=== PATIENT | male | born 1935 | race Caucasian/White ===

== ENCOUNTER 2018-08-06 10:33 | Emergency (ER) | payer OTHER, MEDICARE ==
[~2018-08-06] VITALS: Ht 175.3 cm; Wt 77.1 kg
[2018-08-06 11:47] LABS: ABSOLUTE BASOPHIL COUNT 0 /CUMM (0.0-0.2); ABSOLUTE EOSINOPHIL COUNT 0.3 /CUMM (0.0-0.7); ABSOLUTE GRANULOCYTE CT 4.6 /CUMM (1.4-6.5); ABSOLUTE LYMPH COUNT 1.1 /CUMM (1.2-3.4); ABSOLUTE MONOCYTE COUNT 0.5 /CUMM (0.10-0.60); BASOPHIL % 0.6 % (0.0-2.0); EOSINOPHIL % 5.2 % (0-5); GRANULOCYTE % 69.7 % (42.2-75.2); MEAN CORPUSCULAR HGB 31.6 PG (27.0-31.0); MEAN CORPUSCULAR HGB CONC 33.6 G/DL (33.0-37.0); MEAN CORPUSCULAR VOLUME 94.1 FL (80.0-94.0); MEAN PLATELET VOLUME 7.8 FL (7.4-10.4); PLATELET COUNT 282 /CUMM (130-400); RBC DISTRIBUTION WIDTH 13.4 % (11.5-14.5); RED BLOOD CELL CT 4.04 /CUMM (4.70-6.10); WHITE BLOOD CELL COUNT 6.6 /CUMM (4.8-10.8)
--- NOTE | 2018-08-06 11:50 | ED AMS/SEIZURE/WEAK/DIZZY ---
History of Present Illness General Chief Complaint: General Adult Stated Complaint: MULTI COMPLAINTS Source: patient, Exam Limitations: no limitations Vital Signs & Intake/Output Vital Signs & Intake/Output Vital Signs Date Time Temp Pulse Resp B/P B/P Pulse O2 O2 Flow FiO2 Mean Ox Delivery Rate 08/06 1333 98.3 72 18 141/73 96 Room Air 08/06 1249 97.4 80 21 128/70 94 Room Air 08/06 1155 98 Room Air 08/06 1046 97.0 84 20 123/76 94 Room Air Allergies Coded Allergies: Penicillins (RASH 08/06/18) morphine (HALLUCINATES 08/06/18) Reconcile Medications Atorvastatin Calcium 20 MG TABLET 1 TAB PO DAILY CHOLESTEROL (Reported) Diltiazem HCl 30 MG TABLET 1 TAB PO BID HEART (Reported) Omeprazole 20 MG CAPSULE.DR 1 CAP PO DAILY GI (Reported) Warfarin Sodium 5 MG TABLET 1 TAB PO 1700 BLOOD THINNER (Reported) Triage Note: PT TO ED WITH C/O LETHARGY, WEAKNESS, POOR PO INTAKE, UPSET STOMACH, SOB, FEVERS, MUSCLE ACHES. PT HAD ? INSECT BITE TO [facility] 1 WEEK AGO. H/O AFIB, ON COUMADIN. RA SATS 94%, NO OBVIOUS RESP DISTRESS NOTED. PT HERE FROM [place]. Triage Nurses Notes Reviewed? yes HPI: Patient presents for evaluation of a gradual onset of fever and fatigue over the past 10 days. Patient states that while he was playing golf he was bitten by something on the left forearm and on the right arm but can't say what it was. Over the past 10 days he's had a decreased appetite dyspnea and easy fatigability. He denies cold symptoms vomiting diarrhea or dysuria. he likewise denies rashes. Symptoms are described as moderate to severe in intensity and worsen with exertion. Symptoms have been more or less constant but do tend to fluctuate in intensity. Nothing seems to make him feel better overall. Past History Travel History Traveled to [place] past 21 day No Medical History Any Pertinent Medical History? see below for history Cardiovascular: AFIB, hyperlipidemia Cancer(s): prostate cancer Surgical History Surgical History: non-contributory Psychosocial History What is your primary language Nepali Tobacco Use: Quit >30 days ago ETOH Use: denies use Illicit Drug Use: denies illicit drug use Family History Hx Contributory? No Review of Systems Review of Systems Constitutional: Reports: see HPI. EENTM: Reports: no symptoms. Respiratory: Reports: see HPI. Cardiovascular: Reports: no symptoms. GI: Reports: no symptoms. Genitourinary: Reports: no symptoms. Musculoskeletal: Reports: no symptoms. Skin: Reports: no symptoms. Neurological/Psychological: Reports: no symptoms. Hematologic/Endocrine: Reports: no symptoms. Immunologic/Allergic: Reports: no symptoms. All Other Systems: Reviewed and Negative Physical Exam Physical Exam General Appearance: SEE BELOW Comments: Gen.: Well-nourished, well-developed, no acute respiratory distress. Speaking in full sentences. Head: Normocephalic, atraumatic. Eyes: Normal inspection bilaterally Ears: Normal inspection bilaterally Nose: Normal inspection Throat/mouth : Moist mucosa Neck: Supple, full range of motion, no goiter Heart: Slightly irregular rate and rhythm, no murmurs rubs or gallops Lungs: Clear to auscultation bilaterally with normal air entry Chest: Nontender Back: Normal range of motion, mild to moderate kyphosis Abdomen: Soft, nontender, nondistended, normal bowel sounds Extremities: Normal range of motion grossly, equal radial pulses, no cyanosis clubbing or edema, no pretibial edema, no calf tenderness Neurologic: Cranial nerves grossly intact, speech is clear Skin: warm and dry Psychiatric: Calm, cooperative, no apparent delusions or hallucinations Core Measures ACS in differential dx? No CVA/TIA Diagnosis No Sepsis Present: No Sepsis Focused Exam Completed? No CURB-65 CURB-65 Response Value Age >/= 65 yes 1 Total 1 Progress Differential Diagnosis: anemia, dehydration Plan of Care: Orders Procedure Date/time Status Add-on Test (ER Only) 08/06 1150 Active C-REACTIVE PROTEIN 08/06 1137 Complete B-TYPE NATRIURETIC PEP (BNP) 08/06 1137 Complete URINALYSIS 08/06 1105 Active TROPONIN LEVEL 08/06 1105 Complete COMPREHENSIVE METABOLIC PANEL 08/06 1105 Complete CBC WITHOUT DIFFERENTIAL 08/06 1105 Complete EKG 08/06 1105 Active Laboratory Tests 08/06/18 1137: Anion Gap 7, Estimated GFR > 60, BUN/Creatinine Ratio 21.4, Glucose 117 H, Calcium 8.7, Total Bilirubin 0.6, AST 29, ALT 21, Alkaline Phosphatase 77, Troponin I < 0.01, C-Reactive Prot, Quant 3.4 H, Mgl-U-Ueldmbkzort Pept 299 H, Total Protein 6.1 L, Albumin 3.3 L, Globulin 2.8, Albumin/Globulin Ratio 1.2, CBC w Diff NO MAN DIFF REQ, RBC 4.04 L, MCV 94.1 H, MCH 31.6 H, MCHC 33.6, RDW 13.4, MPV 7.8, Gran % 69.7, Lymphocytes % 16.1 L, Monocytes % 8.4, Eosinophils % 5.2 H, Basophils % 0.6, Absolute Granulocytes 4.6, Absolute Lymphocytes 1.1 L, Absolute Monocytes 0.5, Absolute Eosinophils 0.3, Absolute Basophils 0 08/06/18 1105: Lyme Disease Screen Pending Diagnostic Imaging: Discussed w/RAD: Radiology Read. CXR Impression: PATIENT: MAY DELGADO JR PRESENT AGE: 83 PATIENT ACCOUNT NO: [id number] : 36 LOCATION: [facility] ORDERING PHYSICIAN: Balta Flores MD SERVICE DATE: 08/06/18 EXAM TYPE: RAD - XRY-CHEST XRAY, TWO VIEWS EXAMINATION: XR CHEST CLINICAL INFORMATION: Dyspnea. Fatigue. COMPARISON: None TECHNIQUE: 2 views of the chest were obtained. FINDINGS: The lungs are well expanded. There is left greater than right basilar patchy opacification. No pulmonary edema, large pleural effusion, or pneumothorax. No mediastinal widening. No acute osseous abnormalities. IMPRESSION: Mild bilateral patchy opacification at the lung bases (left greater than right). Please correlate for any clinical symptoms of aspiration or pneumonia. DICTATED BY: Rigoberto Stark MD DATE/TIME DICTATED:08/06/181220 DOG TRAINER:CHICA DATE/TIME TRANSCRIBED:08/06/181220 CONFIDENTIAL, DO NOT COPY WITHOUT APPROPRIATE AUTHORIZATION. <Electronically signed in Other Vendor System> SIGNED BY: Rigoberto Stark MD 08/06/181224 Initial ED EKG: NSR, iNCOMPLETE RIGHT BUNDLE, pacS Comments: 08/06/2018 1:54:40 PM I have updated May on test results. I found him walking about the emergency department room. He appears comfortable and offers no specific complaint at this time. I feel he is stable for outpatient management of his possible pneumonia. His curb-65 score is only 1. Departure Departure Disposition: HOME OR SELF CARE Condition: Stable Clinical Impression Primary Impression: Pneumonia Qualifiers: Pneumonia type: due to unspecified organism Laterality: bilateral Lung location: lower lobe of lung Qualified Code: J18.1 - Lobar pneumonia, unspecified organism Referrals: Anne Marie GUERRERO,Param Holliday (PCP/Family) Additional Instructions: Azithromycin as prescribed for your possible pneumonia. Maintain a good fluid intake. Follow-up with your primary care physician within 48 hours. Return if any concerns or sudden worsening. Please note that there might be incidental findings in your evaluation that are unrelated to the current emergency department visit. Please notify your primary care doctor about this emergency department visit in order to obtain and review all of the testing performed so that these incidental findings can be monitored as needed. If you had an x-ray performed, please understand that some fractures or other findings may not be seen on the initial set of x-rays. If your symptoms persist you might need a repeat set of x-rays to check for such a fracture. If you had a laceration evaluated, please understand that foreign bodies such as glass or wood may not be visible to the naked eye or on plain x-rays. If the wound becomes red, swollen, increasingly more painful or if there is any drainage from the wound, please have it reevaluated by a physician for the possibility of a retained foreign body. If you're unable to follow up as outlined in the discharge instructions please return to the emergency department. Thank you for choosing the [facility] Emergency Department for your care. It was a pleasure to serve you today. Balta Flores M.D. [facility] Departure Forms: Customer Survey General Discharge Information Prescriptions: Current Visit Scripts Azithromycin (Zithromax) 1 DP PO AD #6 TAB 2 the first day followed by 1 for days 2-5
[2018-08-06] MEDS ORDERED: ATORVASTATIN CA20 M1 PO (12:19)
[2018-08-06] MEDS ORDERED: DILTIAZEM HCL30 M1 PO (12:19)
[2018-08-06] MEDS ORDERED: WARFARIN SODIUM5 M1 PO (12:19)
[2018-08-06] MEDS ORDERED: OMEPRAZOLE20 M2 PO (12:20)
--- NOTE | 2018-08-06 12:25 | RADIOLOGY REPORT ---
EXAMINATION: XR CHEST CLINICAL INFORMATION: Dyspnea. Fatigue. COMPARISON: None TECHNIQUE: 2 views of the chest were obtained. FINDINGS: The lungs are well expanded. There is left greater than right basilar patchy opacification. No pulmonary edema, large pleural effusion, or pneumothorax. No mediastinal widening. No acute osseous abnormalities. IMPRESSION: Mild bilateral patchy opacification at the lung bases (left greater than right). Please correlate for any clinical symptoms of aspiration or pneumonia.
[2018-08-06] MEDS ORDERED: ZITHROMAX250 M2 PO (13:57)
== END 2018-08-06 14:10 ==
LOC: ERH 10:33
PROVIDERS: Physician Assistant Medical
DX: J18.9 Pneumonia, unspecified organism (principal); Z87.891 Personal history of nicotine dependence; R50.9 Fever, unspecified; R53.83 Other fatigue; I48.91 Unspecified atrial fibrillation; Z79.01 Long term (current) use of anticoagulants
CPT/HCPCS: 87476; 71046; 93005; 93010

== ENCOUNTER 2018-08-10 08:45 | Emergency (ER) | payer OTHER, MEDICARE ==
[~2018-08-10] VITALS: Ht 175.3 cm; Wt 77.1 kg
[~2018-08-10 08:45] MED LIST: ATORVASTATIN CA20 M1 PO; DILTIAZEM HCL30 M1 PO; OMEPRAZOLE20 M2 PO; WARFARIN SODIUM5 M1 PO; ZITHROMAX250 M2 PO
[2018-08-10 09:22] LABS: ABSOLUTE BASOPHIL COUNT 0 /CUMM (0.0-0.2); ABSOLUTE EOSINOPHIL COUNT 0.4 /CUMM (0.0-0.7); ABSOLUTE GRANULOCYTE CT 5.4 /CUMM (1.4-6.5); ABSOLUTE LYMPH COUNT 0.7 /CUMM (1.2-3.4); ABSOLUTE MONOCYTE COUNT 0.5 /CUMM (0.10-0.60); BASOPHIL % 0.2 % (0.0-2.0); EOSINOPHIL % 5.2 % (0-5); GRANULOCYTE % 76.2 % (42.2-75.2); HEMATOCRIT 39.4 % (42-52); MEAN CORPUSCULAR HGB 31.5 PG (27.0-31.0); MEAN CORPUSCULAR HGB CONC 33.4 G/DL (33.0-37.0); MEAN CORPUSCULAR VOLUME 94.2 FL (80.0-94.0); MEAN PLATELET VOLUME 7.8 FL (7.4-10.4); PLATELET COUNT 296 /CUMM (130-400); RBC DISTRIBUTION WIDTH 13.1 % (11.5-14.5); RED BLOOD CELL CT 4.18 /CUMM (4.70-6.10); WHITE BLOOD CELL COUNT 7.1 /CUMM (4.8-10.8)
[2018-08-10 09:35] LABS: PT 40.3 SEC (9.4-12.5); PTT 43 SEC (25-37)
--- NOTE | 2018-08-10 10:39 | RADIOLOGY REPORT ---
EXAMINATION: XR CHEST CLINICAL INFORMATION: Dyspnea, weakness. Assess for worsening pneumonia or effusion. COMPARISON: Chest x-ray 08/06/2018. TECHNIQUE: Frontal and lateral views of the chest were obtained. FINDINGS: The lung goetz are well expanded bilaterally. The study redemonstrates patchy opacities at the bases bilaterally, slightly more extensive on the left when compared to the prior study. The changes on the right superior stable. The cardiac silhouette is prominent but unchanged. The aortic arch is unfolded and calcified. There are no pleural effusions. No pneumothoraces are seen. The central pulmonary vasculature appears normal. There are multilevel spondylitic changes in the spine, and there appears to be diffuse osteopenia. IMPRESSION: 1. There are increasing patchy opacities at the left base, which may be consistent with developing consolidation. Changes at the right base appear stable.
--- NOTE | 2018-08-10 10:44 | ED GENERAL ADULT ---
History of Present Illness General Chief Complaint: General Adult Stated Complaint: DX PNEMONIA SYMPTOMS WORSENING Source: patient, family Exam Limitations: no limitations Allergies Coded Allergies: Penicillins (RASH 08/06/18) morphine (HALLUCINATES 08/06/18) Reconcile Medications Albuterol Sulfate (Proventil Hfa) 90 MCG HFA.AER.AD 2 PUF INH Q4 COPD Atorvastatin Calcium 20 MG TABLET 1 TAB PO DAILY CHOLESTEROL (Reported) Diltiazem HCl 30 MG TABLET 1 TAB PO BID HEART (Reported) Fluticasone/Salmeterol (Advair 500-50 Diskus) 500 MCG-50 MCG/DOSE BLST.W.DEV 1 PUF INH BID COPD Omeprazole 20 MG CAPSULE.DR 1 CAP PO DAILY GI (Reported) Prednisone (Deltasone) 20 MG TABLET 1 TAB PO DAILY COPD Warfarin Sodium 5 MG TABLET 1 TAB PO 1700 BLOOD THINNER (Reported) Triage Note: 83M RECOMMENDED TO RETURN TO ED FOR REPEAT CXR, DIAGNOSED MONDAY FOR POSSIBLE PNA AND PUT ON ZPAK. HAS BEEN SOB AND JEWELL X2 WEEKS, PAIN WITH DEEP INSPIRATION, FATIGUE, POOR APPETITE, BUT DENIES COUGH OR FEVERS/CHILLS OR SORE THROAT. ON COUMADIN 5MG DAILY FOR AFIB. RECENT PLAN RIDE FROM [place] LAST MONDAY, STATES SYMPTOMS BEGAN BEFORE THAT. DENIES EXTREMITY SWELLING. 02 SAT 92% AT REST. DENIES CP/PALP. NO OBVIOUS PALOR, RESP DISTRESS OR TACHYPNEA OBSERVED IN TRIAGE Triage Nurses Notes Reviewed? yes Onset: Gradual Duration: day(s): HPI: Patient is an 83-year-old gentleman with a past medical history significant for A. fib, AAA who is here due to generalized weakness, decreased appetite what he thinks is related to worsening pneumonia. From 2 weeks ago he feels like having pneumonia, productive cough with white sputum, no fever, generalized body achiness. He has started the Z-Osiel from Monday which was prescribed by Dr. Flores, but his condition has not improved and he is back for reevaluation. He also has a A. fib for which he is taking warfarin, no history of heart failure, lower extremity swelling, pulmonary edema, or other cardiac diseases. No history of decreased renal function, or hepatic dysfunction. He has a recent travel from [place], and he will travel back to [place] on Monday. The patient is states that he has lightheadedness if he tries to get up from sitting or lying position too fast which is not new, but he denies any chest pain, chest compression, nausea, vomiting, abdominal pain, constipation, diarrhea, dysuria, frequency, facial congestion, postnasal drip, headache. (Jamie GUERRERO,[place]) Vital Signs & Intake/Output Vital Signs & Intake/Output Vital Signs Date Time Temp Pulse Resp B/P B/P Pulse O2 O2 Flow FiO2 Mean Ox Delivery Rate 08/10 1601 88 20 161/83 91 Room Air Room Air 08/10 1449 94 08/10 1321 98.1 69 20 143/77 94 Room Air 08/10 1245 Room Air Room Air ED Intake and Output 08/11 0000 08/10 1200 Intake Total Output Total Balance Patient 170 lb Weight (Balta Ayala DO) Past History Travel History Traveled to [place] past 21 day No Medical History Any Pertinent Medical History? see below for history Neurological: NONE EENT: NONE Cardiovascular: AFIB, hyperlipidemia Respiratory: NONE Gastrointestinal: NONE Hepatic: NONE Renal: NONE Musculoskeletal: NONE Psychiatric: NONE Endocrine: NONE Cancer(s): prostate cancer Surgical History Surgical History: non-contributory Psychosocial History What is your primary language Mohawk Tobacco Use: Quit >30 days ago Family History Hx Contributory? No (Jamie GUERRERO,[place]) Review of Systems Review of Systems Constitutional: Reports: see HPI. EENTM: Reports: no symptoms. Respiratory: Reports: see HPI. Cardiovascular: Reports: see HPI. GI: Reports: no symptoms. Genitourinary: Reports: no symptoms. Musculoskeletal: Reports: no symptoms. Skin: Reports: no symptoms. Neurological/Psychological: Reports: no symptoms. Hematologic/Endocrine: Reports: see HPI. Immunologic/Allergic: Reports: no symptoms. (Jamie GUERRERO,[place]) Physical Exam Physical Exam General Appearance: well developed/nourished, no apparent distress, alert, awake , comfortable Head: atraumatic, normal appearance Eyes: Bilateral: normal appearance. Ears, Nose, Throat: hearing grossly normal Neck: normal inspection Respiratory: crackles, Crackles on both basilar areas Cardiovascular: regular rate/rhythm Peripheral Pulses: 2+ radial (R), 2+ radial (L), 2+ dorsalis pedis (R), 2+ dorsalis pedis (L) Gastrointestinal: normal bowel sounds, soft, non-tender, no organomegaly Back: normal inspection, no vertebral tenderness Extremities: normal inspection, normal capillary refill, normal range of motion, no edema Neurologic/Psych: no motor/sensory deficits, awake, alert, oriented x 3, normal mood/affect Skin: intact, normal color, warm/dry Core Measures ACS in differential dx? No CVA/TIA Diagnosis: No Sepsis Present: No Sepsis Focused Exam Completed? No (Jamie GUERRERO,[place]) Progress Differential Diagnoses I considered the following diagnoses in my evaluation of the patient: [pneumonia , pulmonary congestion, low possibility of pulmonary embolism] Diagnostic Imaging: Viewed by Me: Radiology Read, CT Scan. Radiology Impression: NO PE, No pneumonia CXR Impression: basilar consolidation Initial ED EKG: NSR Repeat EKG: unchanged Comments: CTA of the chest did not show any evidence of PE, and pneumonia was not reported , the patient has completed the course of azithromycin. He was previously diagnosed with COPD and used Advair and prednisone. Dr. Ayala visited and examined the patient by himself, we will check the ambulatory O2 saturation of this patient. Ambulated saturation of this patient showed O2 sat as low as 85-88%. (Jamie GUERRERO,[place]) Differential Diagnoses I considered the following diagnoses in my evaluation of the patient: Plan of Care: Orders Procedure Date/time Status ED- NURSING [facility] 08/10 1421 Active (Balta Ayala DO) Departure Departure Disposition: LEFT AGAINST MEDICAL ADVICE Condition: Stable Clinical Impression Primary Impression: COPD (chronic obstructive pulmonary disease) Qualifiers: COPD type: unspecified COPD Qualified Code: J44.9 - Chronic obstructive pulmonary disease, unspecified Referrals: Patient Has No Primary Care Dr (PCP/Family) Additional Instructions: Please use the medication as described including Adavir, and albuterol as needed. Please follow-up with your PCP this week Departure Forms: Customer Survey General Discharge Information Prescriptions: Current Visit Scripts Prednisone (Deltasone) 1 TAB PO DAILY #6 TAB Fluticasone/Salmeterol (Advair 500-50 Diskus) 1 PUF INH BID #1 INHAL Albuterol Sulfate (Proventil Hfa) 2 PUF INH Q4 #1 INHAL Comments The patient needs to be admitted for further evaluation of the cause of his low O2 saturations with a background of COPD. We talked to the patient and explained the situation to him and the risks of not being admitted. He does not want to be admitted, he also talked to his about this issue on the phone and wants to leave AGAINST MEDICAL ADVICE. He agreed to use the prescribed medications as directed and he will follow-up with his PCP. We called the phone number listed on the chart, to let the patient know that the medication has been sent to the pharmacy listed on the chart which is the [facility] in [facility]. (Jamie GUERRERO,[facility]) Resident Co-Sign Statement Statement: ED Attending supervision documentation- [x] I saw and evaluated the patient. I have also reviewed all the pertinent lab results and diagnostic results. I agree with the findings and the plan of care as documented in the Resident's documentation. [] I have reviewed the ED Record and agree with the Resident's documentation. [] Additions or exceptions (if any) to the Resident's note and plan are summarized below: [] 83-year-old man with difficulty breathing on exertion. He denied any chest pain. Recently diagnosed with pneumonia and treated with Zithromax. He also has a history of COPD. He also has a history of prostate cancer, A. fib on Coumadin. CTA was negative for PE, he does have poor air entry on lung exam. EKG is unremarkable troponin is negative. He relates a history of COPD and Advair use in the past. The patient ambulated down on his sats dropped into the 80s. He was advised admission to the hospital. Despite my best attempts that he stay he signed out AGAINST MEDICAL ADVICE as he wanted to follow-up with his primary care doctor in [place]. (Balta Ayala DO) Critical Care Note Critical Care Note Critical Care Time: non-applicable (Balta Ayala DO) [] Additions or exceptions (if any) to the Resident's note and plan are summarized below: [] 83-year-old man with difficulty breathing on exertion. He denied any chest pain. Recently diagnosed with pneumonia and treated with Zithromax. He also has a history of COPD. He also has a history of prostate cancer, A. fib on Coumadin. CTA was negative for PE, he does have poor air entry on lung exam. EKG is unremarkable troponin is negative. He relates a history of COPD and Advair use in the past. The patient ambulated down on his sats dropped into the 80s. He was advised admission to the hospital. Despite my best attempts that he stay he signed out AGAINST MEDICAL ADVICE as he wanted to follow-up with his primary care doctor in [place]. (Balta Ayala DO) Critical Care Note Critical Care Note Critical Care Time: non-applicable (Balta Ayala DO)
--- NOTE | 2018-08-10 14:08 | CT SCAN REPORT ---
EXAMINATION: CTA CHEST PE STUDY CLINICAL INFORMATION: Short of breath COMPARISON: Chest x-ray earlier today TECHNIQUE: Prior to contrast administration, noncontrast localization images were obtained. After the administration of 95 ml of Optiray 320 IV contrast, contiguous thin slice helical images were obtained through the thorax. Reformatted MIP images in the coronal and sagittal planes were obtained at the acquisition workstation. DLP: 393 mGy-cm. FINDINGS: The bolus timing on this study was acceptable for visualization of the pulmonary arterial tree. There are no intraluminal pulmonary arterial filling defects present to suggest pulmonary embolism. Linear regions of scarring or atelectasis are seen bilaterally. There are peripheral reticular markings more so in the dependent lung bases again suggesting regions of chronic scarring or fibrosis. No abnormal pulmonary nodules or masses are appreciated. No significant hilar or mediastinal adenopathy. Small hiatal hernia is present There is no evidence of pleural effusion or pneumothorax. The heart is normal in size. No evidence of ventricular septal bowing or right heart strain. Prominent vascular calcification in the coronary arteries and to a lesser extent thoracic aorta. There is no pericardial effusion or pericardial thickening. Limited evaluation of the upper abdominal viscera demonstrates gallstones in the otherwise unremarkable gallbladder. IMPRESSION: No evidence for pulmonary emboli. Linear reticular markings bilaterally more suggestive of scarring or atelectasis. Underlying fibrotic changes would be difficult to exclude. VTE: Negative
[2018-08-10 16:01] VITALS: BP 161/83
[2018-08-10] MEDS ORDERED: ADVAIR 500-501 EACH INH (16:15)
[2018-08-10] MEDS ORDERED: DELTASONE20 MG PO (16:15)
[2018-08-10] MEDS ORDERED: PROVENTIL HFA6.7 GM INH (16:15)
== END 2018-08-10 16:14 | disposition left against medical advice (07) ==
LOC: ERH 08:45
PROVIDERS: Physician Assistant
DX: J44.9 Chronic obstructive pulmonary disease, unspecified (principal); Z87.891 Personal history of nicotine dependence; R53.1 Weakness; R05 Cough; M79.1 Myalgia; I48.91 Unspecified atrial fibrillation; Z79.01 Long term (current) use of anticoagulants
CPT/HCPCS: 1263; 71046; 81003; 93005; 93010; 96374; J2930